=== PATIENT | female | born 1990 | race Caucasian/White ===

== ENCOUNTER 2017-01-19 13:40 | Emergency (ER) | payer BC ==
[2017-01-19] MEDS ORDERED: Ketorolac Tromethamine 30 MG/ML VIAL ONE (17:45)
== END 2017-01-19 18:55 | disposition home or self-care (01) ==
LOC: ERS 13:40
DX: G50.0 Trigeminal neuralgia (principal); G43.909 Migraine, unspecified, not intractable, without status migrainosus; F41.9 Anxiety disorder, unspecified; F32.9 Major depressive disorder, single episode, unspecified
CPT/HCPCS: 96372; J1885

== ENCOUNTER 2019-02-10 10:16 | Emergency (ER) | payer BC, OTHER | END 2019-02-10 13:37 | disposition home or self-care (01) | LOC: ERS 10:16 | DX: J11.1 Influenza due to unidentified influenza virus with other respiratory manifestations (principal); G43.909 Migraine, unspecified, not intractable, without status migrainosus; F41.9 Anxiety disorder, unspecified; F32.9 Major depressive disorder, single episode, unspecified | CPT/HCPCS: 87804; 99283 ==

== ENCOUNTER 2019-10-13 13:04 | Emergency (ER) | payer OTHER ==
[2019-10-13 13:41] LABS: BHCG - Serum Negative (NEGATIVE); Pregs Control Background? CLEAR/WHITE (CLR/WHITE); Pregs Control Bar Appear? YES (CONTROL BAR)
[2019-10-13] MEDS ORDERED: Ketorolac Tromethamine 30 MG/ML VIAL ONE (13:42)
[2019-10-13] MEDS ORDERED: Lorazepam 2 MG/ML VIAL ONE (13:42)
[2019-10-13 13:43] LABS: #Basophils 0.1 thou/uL (0.0-0.2); #Lymphocytes 1.4 thou/uL (1.20-3.40); #Monocytes 1.1 thou/uL (0.11-0.59); #Neutrophils 12.4 thou/uL (1.40-6.50); %Basophils 0.4 % (0.0-1.0); %Eosinophils 0.1 % (0.0-10.0); %Lymphocytes 9.2 % (21.0-51.0); %Monocytes 7.2 % (0.0-10.0); %Neutrophils 83.1 % (42.0-75.0); Hemoglobin 13.6 g/dL (12.0-16.0); Mean Corpuscular HGB CONC 33.6 g/dL (32.0-36.0); Mean Corpuscular Hemoglobin 33.2 pg (27.0-31.0); Mean Corpuscular Volume 98.7 fL (78.0-98.0); Platelet Count 144 thou/uL (130-400); RBC Distribution Width 12.1 % (11.5-14.5); Red Blood Cell (RBC) Count 4.11 mill/uL (4.20-5.40)
[2019-10-13 13:57] LABS: ALT (SGPT) 11 U/L (8-55); AST (SGOT) 10 U/L (5-34); Albumin 3.6 g/dL (3.5-5.0); Alkaline Phosphatase 58 U/L (40-110); Anion Gap 16 mmol/L (10-20); BUN (Urea Nitrogen) 11 mg/dL (7.0-18.7); Bilirubin, Total 1.2 mg/dL (0.2-1.2); CK (CPK) 41 U/L (29-168); Calc. Creatinine Clearance 0 mL/min (70-130); Calcium 8.3 mg/dL (7.8-10.44); Carbon Dioxide 18 mmol/L (22-29); Chloride 107 mmol/L (98-107); Estimated GFR-MDRD 72; Globulin 2.1 g/dL (2.4-3.5); Glucose 100 mg/dL (70-105); Potassium 3.4 mmol/L (3.5-5.1); Protein, Total 5.7 g/dL (6.0-8.3); Sodium 138 mmol/L (136-145)
--- NOTE | 2019-10-13 14:18 | RAD ---
RADIOGRAPH CHEST 1 VIEW: DATE: 10/13/2019 HISTORY: 29-year-old female with chest pain and dyspnea FINDINGS: There are no airspace densities, pulmonary edema, pneumothorax, or cardiomegaly. The lateral costophr enic angles are sharp. IMPRESSION: No acute cardiopulmonary findings.
== END 2019-10-13 15:13 | disposition home or self-care (01) ==
LOC: ERS 13:04
DX: R07.89 Other chest pain (principal); R06.02 Shortness of breath; F41.9 Anxiety disorder, unspecified; F32.9 Major depressive disorder, single episode, unspecified; Z87.442 Personal history of urinary calculi
CPT/HCPCS: 36415; 71045; 80053; 82550; 84703; 85025; 93005; 96374; 96375; J1885; J2060

== ENCOUNTER 2019-10-16 08:33 | Inpatient (IN) | payer OTHER ==
[2019-10-16 10:06] VITALS: BMI 25.9
[2019-10-16] MEDS ORDERED: Ondansetron PF 4 MG/2 ML Vial IVP PRN (10:14)
[2019-10-16] MEDS ORDERED: Acetaminophen 650 MG Suppository PR PRN (10:14)
[2019-10-16] MEDS ORDERED: Acetaminophen 325 MG TAB PO PRN (10:14)
[2019-10-16] MEDS ORDERED: Potassium Chloride 20 MEQ in Premix Bag 1 BAG IVPB SCH (10:45)
[2019-10-16] MEDS: Sodium Chloride 0.9% 1,000 ML IV SCH ×2 (13:30→20:37)
[2019-10-16] MEDS ORDERED: HYDROcodone/Acetaminophen 5/325 mg Tablet PO PRN (14:15)
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
[2019-10-16] MEDS: Morphine 2 MG/ML VIAL SLOW IVP PRN (16:22)
[2019-10-16] MEDS: Ketorolac Tromethamine 30 MG/ML VIAL IVP PRN (17:39)
[2019-10-16] MEDS ORDERED: Potassium Chloride 20 MEQ TAB PO SCH (17:45)
--- NOTE | 2019-10-16 20:23 | CON ---
DATE OF CONSULTATION: 10/16/2019 CONSULTING PHYSICIAN: Dr. Shah. REASON FOR CONSULTATION: Ureteral stone with hydronephrosis. CHIEF COMPLAINT: "I have this pain on my left side." HISTORY OF PRESENT ILLNESS: Tiffanie is a 29-year-old white female who initially presented to the emergency room with intractable nausea and vomiting along with sharp left lower quadrant and groin pain, which was intermittent and rated about a 9/10. She initially went to [place] on 10/11, and was diagnosed with a 2-mm distal left ureteral stone. She was given antinausea medication and pain medication and told that she has a high probability of passing the stone; however, she continued to have more nausea and vomiting, some due to the pain medication and some due to the stone. She stated that she could not tolerate this and came back to the emergency room today. She had another CT scan, which showed a 3-mm stone at the ureterovesical junction, which was likely the same stone, measured slightly differently. She denied any fevers during this time. She has not taken any antibiotics. Her nausea and vomiting are currently under control and her pain is currently a 4/10 with continued pain in her left lower quadrant and left groin. She does have a history of prior nephrolithiasis. ALLERGIES: 1. LATEX. 2. TRAMADOL. 3. ADHESIVES. CURRENT HOME MEDICATIONS: None. PAST MEDICAL HISTORY: 1. Nephrolithiasis. 2. Migraine headaches, treated with Botox every 3 months. PAST SURGICAL HISTORY: 1. Nasal surgery. 2. Knee surgery x3. 3. [place] tooth surgery. FAMILY HISTORY: Noncontributory. SOCIAL HISTORY: The patient currently works at a bakery. She is finishing [employer]. She denies tobacco abuse, illicit drug use, or alcohol abuse. REVIEW OF SYSTEMS: A 12-point review of systems reviewed and negative other than what was commented on the HPI. PHYSICAL EXAMINATION: VITAL SIGNS: Temperature 98.3, pulse 55, respirations 16, blood pressure 106/72, and saturation 98% on room air. GENERAL: No apparent distress, communicative and alert, appears stated age, well nourished, well developed, looks somewhat tired and worn out from her recent episodes of pain and nausea and vomiting. HEENT: Normocephalic and atraumatic. Pupils are symmetric and round. Trachea midline. Moist mucous membranes. CARDIOVASCULAR: Sinus bradycardia. Normal S1 and S2. Symmetric pulses. CHEST: Nonlabored breathing. Symmetric expansion. LUNGS: Clear anteriorly. ABDOMEN: Soft, nontender, and nondistended. Positive bowel sounds. No significant suprapubic tenderness. Mild left lower quadrant tenderness. No obvious organomegaly. GENITOURINARY: Deferred at this time. EXTREMITIES: No clubbing, cyanosis, or edema. SKIN: Warm and dry. No rash or lesions. Good turgor. MUSCULOSKELETAL: No joint deformities or joint erythema noted. Full range of motion. NEUROLOGIC: Cranial nerves 2 through 12 grossly intact. No focal or sensory motor deficits identified. LYMPHATICS: No obvious lymphadenopathy noted. PSYCHIATRIC: Alert and oriented x3. Appropriate mood and affect. LABORATORY EVALUATION: Full set of labs are in the [employer] system, which I have reviewed. Of note, the patient's creatinine is 1.19. White count of 15.3. Urinalysis demonstrates 7 to 10 red cells, rare calcium oxalate crystals, leukocyte esterase negative, nitrite negative, no bacteria seen. test was also negative. IMAGING REVIEW: CT stone protocol demonstrates a 3-mm distal left ureterovesical junction stone with mild hydronephrosis and no other stones noted. There is also mild edema of the left kidney. ASSESSMENT AND PLAN: A 29-year-old white female with a 2nd visit to the emergency room secondary to the same distal left ureteral stone. There is still an 85% chance that she could pass the stone on her own if she can control the nausea and vomiting; however, the patient states that she is tired of dealing with the symptoms and would rather have the stone removed. I think this is very reasonable given that she has had intractable nausea and vomiting and has already failed initial trial of medical expulsive therapy at home. I discussed ureteroscopy with her, which would be the ideal treatment in the setting with a distal stone. Procedure was explained in detail as well as the postoperative course and need for ureteral stenting afterwards. Risks and benefits of surgery were discussed, risks of which include but are not limited to bleeding, infection, damage to the ureter, ureteral stricture, inability to remove the stone, ureteral perforation, damage to the kidney or bladder, urethral injury and need for further procedures. She understands these risks and states that she is willing to proceed forward with ureteroscopy tomorrow. We will get this set up for tomorrow. I also explained the absolute need to make sure she has followup to have her stent removed to avoid serious complications from retained indwelling stent. She states she understands and will keep her followup appointments. PLAN: 1. Regular diet for now, n.p.o. after midnight. 2. The patient may remain on antibiotics as it stands currently in preparation for her surgery tomorrow due to elevated white count. 3. No evidence for urinary tract infection, but continue antibiotics for now. 4. SCDs bilaterally on-call to the OR. 5. To operating room tomorrow for cystoscopy, left ureteroscopy, laser lithotripsy, basket extraction of stone, and placement of ureteral stent on the left. 6. The patient can probably be discharged home once her stone is removed and she has a stent in, I will handle her followup on an outpatient basis for stent removal and then stone metabolic workup for stone prevention in the future. Job ID: [id number]
[2019-10-16] MEDS: Famotidine/PF 20 mg/2ml Vial SLOW IVP SCH (20:37)
[2019-10-17] MEDS: Sodium Chloride 0.9% 1,000 ML IV SCH ×2 (03:52→21:38)
[2019-10-17 06:01] LABS: #Basophils 0.1 thou/uL (0.0-0.2); #Eosinphils 0.1 thou/uL (0.0-0.7); #Lymphocytes 2.4 thou/uL (1.20-3.40); #Monocytes 0.5 thou/uL (0.11-0.59); #Neutrophils 4.3 thou/uL (1.40-6.50); %Eosinophils 1.4 % (0.0-10.0); %Lymphocytes 32.1 % (21.0-51.0); %Monocytes 7.3 % (0.0-10.0); %Neutrophils 58.3 % (42.0-75.0); Hemoglobin 12.1 g/dL (12.0-16.0); Mean Corpuscular Hemoglobin 32.3 pg (27.0-31.0); Mean Platelet Volume 12.2 fL (7.4-10.4); Platelet Count 106 thou/uL (130-400); RBC Distribution Width 12.3 % (11.5-14.5); Red Blood Cell (RBC) Count 3.75 mill/uL (4.20-5.40); White Blood Cell (WBC) Count 7.4 thou/uL (4.8-10.8)
[2019-10-17 06:21] LABS: Anion Gap 10 mmol/L (10-20); BUN (Urea Nitrogen) 7 mg/dL (7.0-18.7); Calc. Creatinine Clearance 127 mL/min (70-130); Calcium 7.8 mg/dL (7.8-10.44); Carbon Dioxide 23 mmol/L (22-29); Chloride 108 mmol/L (98-107); Estimated GFR-MDRD 84; Glucose 80 mg/dL (70-105); Potassium 3.8 mmol/L (3.5-5.1); Sodium 137 mmol/L (136-145)
[2019-10-17] MEDS ORDERED: Fentanyl 100 MCG/2 ML VIAL ONE ×2 (07:10→09:27)
[2019-10-17] MEDS ORDERED: Iothalamate Meglumine 60% 50 ML VIAL FS ONE (07:31)
[2019-10-17] MEDS ORDERED: B & O ONE (07:31)
[2019-10-17] MEDS ORDERED: Ondansetron ODT 4 MG TAB ONE (07:46)
[2019-10-17] MEDS ORDERED: Midazolam HCl 2 mg/2 ml Vial ONE (07:57)
[2019-10-17] MEDS ORDERED: cefTRIAXone\\ROCEPHIN 1 GM VIAL ONE (07:58)
[2019-10-17] MEDS ORDERED: Sodium Chloride 0.9% 100 ML ONE (07:59)
[2019-10-17] MEDS ORDERED: cefTRIAXone\\ROCEPHIN 1 GM in Sodium Chloride 0.9% 100 ML IVPB SCH (08:00)
[2019-10-17] MEDS ORDERED: cefTRIAXone Sodium 1,000 MG in Syringe 0 ML IVPB SCH (08:00)
[2019-10-17] MEDS ORDERED: SUGAMMADEX SODIUM 200 MG/2 ML VIAL ONE (08:49)
--- NOTE | 2019-10-17 09:36 | OP ---
DATE OF PROCEDURE: 10/17/2019 SERVICES: Urology. PREOPERATIVE DIAGNOSIS: Left ureteral stone. POSTOPERATIVE DIAGNOSIS: Left ureteral stone. PROCEDURE PERFORMED: Left ureteroscopy, laser lithotripsy, basket extraction of stone and placement of a 6 x 24 double-J stent. INDICATION FOR PROCEDURE: Ms. Moreno is a 29-year-old white female who initially presented to the emergency room for a 2nd time with left flank pain. A CT demonstrated a 3-mm distal stone. She had intractable vomiting and had failed medical expulsive therapy. She elected to instead have her stone removed. Risks and benefits were discussed, and she has agreed to proceed forward. DESCRIPTION OF PROCEDURE: After identification of armband and verification of consent, the patient was brought back to the operating room where she underwent general anesthesia with endotracheal intubation. She was then placed in dorsal lithotomy position and prepped and draped in usual sterile fashion. After appropriate time-out, a lubricated 22-Frisian rigid cystoscope was introduced per urethra into the bladder. Attention was turned to left ureteral orifice. The bladder was grossly unremarkable without lesions or stones noted. The left ureter was cannulated with a 0.035 Sensor wire up to the level of renal pelvis. The cystoscope was then removed leaving the Sensor wire in place as a safety wire. A semi-rigid ureteroscope was then brought in alongside the Sensor wire and cannulated through the distal ureter until the stone was noted in the distal ureter. Using a 200 micron laser fiber, the stone was fragmented in half, and then a 1.9-Frisian ZeroTip Nitinol basket used to remove the fragments. Upon completion, the ureter was completely clean, free of stone debris. Due to some inflammation and a very mild thermal injury from the laser, I did elect to leave a stent afterwards. The ureteroscope was withdrawn, and the 6 x 24 double-J stent was positioned fluoroscopically over the wire into the proximal end into the kidney and a distal into the bladder. The wire was removed, leaving a good curl in the kidney and bladder as seen fluoroscopically. The cystoscope was then reintroduced back into the bladder, and an additional fragment of the stone was removed using flexible graspers. The distal end of the stent was confirmed in the bladder and seen to be curled there. The bladder was emptied, and the cystoscope removed. B and O suppositories were placed in the patient's rectum. She was then taken out of position, awakened, taken to PACU for recovery in stable condition. COMPLICATIONS: None. ESTIMATED BLOOD LOSS: Minimal. RETAINED TUBES AND DRAINS: 6 x 24 double-J stent on the left. SPECIMENS: Stone for stone analysis. DISPOSITION: The patient will be discharged home and will follow up with me in approximately 1 week for cystoscopy and stent removal. Job ID: [id number]
[2019-10-17] MEDS ORDERED: Labetalol HCl 100 MG/20 ML VIAL ONE (09:43)
[2019-10-17] MEDS ORDERED: Ondansetron HCl/PF 4 MG/2 ML Vial IVP PRN (09:52)
[2019-10-17] MEDS ORDERED: Labetalol HCl 100 MG/20 ML VIAL SLOW IVP SCH (09:56)
[2019-10-17] MEDS: Famotidine/PF 20 mg/2ml Vial SLOW IVP SCH ×2 (10:02→20:32)
[2019-10-17] MEDS ORDERED: Glycopyrrolate 0.2 MG/ML 5 ML SYRINGE ONE (10:07)
[2019-10-17] MEDS ORDERED: Lidocaine 1% PF 5 ML VIAL ONE (10:07)
[2019-10-17] MEDS ORDERED: PROPOFOL 200 MG/20 ML VIAL ONE (10:07)
[2019-10-17] MEDS ORDERED: Dexamethasone 20 MG/5 ML VIAL ONE (10:07)
[2019-10-17] MEDS ORDERED: Rocuronium Bromide 10 MG/ML (10ML VIAL) ONE (10:07)
[2019-10-17] MEDS ORDERED: Ondansetron PF 4 MG/2 ML Vial ONE (10:07)
[2019-10-17] MEDS ORDERED: hydrALAZINE 20 MG/ML VIAL SLOW IVP SCH (12:00)
[2019-10-17 12:32] LABS: SARS-CoV-2 MS2 Positive; SARS-CoV-2 N Gene Negative; SARS-CoV-2 S Gene Negative; SARS-CoV-2 by NAA Not Detected (NotDetected); SARS-CoV-2 orf1ab Negative
--- NOTE | 2019-10-17 13:30 | PDOC.HOSPP ---
- Subjective Encounter Date: 10/17/19 Encounter Time: 10:40 Subjective: Patient had a urethral stent placement just returned from the OR. Lately the nursing called me for high blood pressure and chest discomfort. - Objective Vital Signs & Weight: Vital Signs (12 hours) Temp Pulse Resp BP BP Pulse Ox 10/17/19 13:08 98.2 F 80 14 118/69 99 10/17/19 12:18 61 172/104 H 10/17/19 12:15 54 L 10/17/19 11:27 98.2 F 54 L 16 155/91 H 98 10/17/19 10:00 98.6 F 60 16 160/95 H 99 10/17/19 07:12 98.5 F 61 16 130/81 97 Weight Admit Weight 171 lb 0.5 oz Weight 171 lb 0.5 oz I&O: 10/16/19 10/17/19 10/18/19 06:59 06:59 06:59 Intake Total 1220 Output Total 300 Balance 920 Result Diagrams: 10/17/19 05:32 10/17/19 05:32 Hospitalist ROS - Medication Medications: Active Medications Generic Name Dose Route Start Last Admin Trade Name Freq PRN Reason Stop Dose Admin Famotidine 20 mg 10/16/19 21:00 10/17/19 10:02 Pepcid SLOW IVP Not Given Q12HR IVY Hydralazine HCl 10 mg 10/17/19 12:00 10/17/19 12:18 Apresoline SLOW IVP 10/17/19 16:00 10 mg NOW IVY Administration Sodium Chloride 1,000 mls @ 100 mls/hr 10/16/19 10:30 10/17/19 03:52 Normal Saline 0.9% IV Not Given .Q10H IVY Ceftriaxone Sodium 1 gm/ 100 mls @ 200 mls/hr 10/17/19 08:00 10/17/19 08:06 Sodium Chloride IVPB 100 mls Q24HR IVY Administration Ketorolac Tromethamine 30 mg 10/16/19 14:47 10/16/19 17:39 Toradol IVP 10/21/19 14:48 30 mg Q6H PRN Administration Pain Morphine Sulfate 2 mg 10/16/19 14:46 10/16/19 16:22 Morphine SLOW IVP 2 mg Q4H PRN Administration Severe Pain (7-10) Ondansetron HCl 4 mg 10/16/19 10:14 10/16/19 15:10 Zofran IVP 4 mg Q6H PRN Administration Nausea/Vomiting Sodium Chloride 10 ml 10/16/19 21:00 10/17/19 10:01 Flush - Normal Saline IVF 10 ml Q12HR IVY Administration - Exam General Appearance: NAD, awake alert Eye: PERRL ENT: normocephalic atraumatic Neck: supple Heart: RRR Respiratory: CTAB, normal chest expansion Gastrointestinal: soft, normal bowel sounds Neurological: no focal deficits Psychiatric: A&O x 3 Hosp A/P - Plan Left ureteral stone Left hydronephrosis Status post stone extraction cystoscopy and laser lithotripsy and basket extraction of the stone. Lately the nursing called me for high blood pressure and chest discomfort. Accelerated hypertension secondary to pain Likely noncardiac chest discomfort secondary to acute stress Unlikely cardiac ischemia in this young patient. --Will follow clinically. PRN medication Follow next few hours. If she is stable we can discharge her; otherwise observe overnight postop.
[2019-10-17] MEDS: Nitroglycerin 0.4 MG TAB (25 Tab Bottle) SL SCH ×2 (14:10→14:44)
[2019-10-17] MEDS: Ketorolac Tromethamine 30 MG/ML VIAL IVP PRN ×2 (14:58→21:34)
[2019-10-17] MEDS ORDERED: hydrALAZINE 20 MG/ML VIAL SLOW IVP PRN (16:29)
[2019-10-18] MEDS: Ketorolac Tromethamine 30 MG/ML VIAL IVP PRN (02:39)
[2019-10-18] MEDS: Morphine 2 MG/ML VIAL SLOW IVP PRN (05:12)
[2019-10-18] MEDS: Sodium Chloride 0.9% 1,000 ML IV SCH (07:10)
[2019-10-18] MEDS: Famotidine/PF 20 mg/2ml Vial SLOW IVP SCH (08:11)
[2019-10-18 08:14] VITALS: TEMP 98.4
[2019-10-18 11:22] VITALS: BP 133/81
--- NOTE | 2019-10-18 14:35 | DIS ---
DATE OF ADMISSION: 10/16/2019 DATE OF DISCHARGE: 10/18/2019 DISCHARGE DIAGNOSES: 1. Left ureteral stone and associated left hydronephrosis. 2. Status post stone extraction with cystoscopy and laser lithotripsy. DISCHARGE MEDICATION: Jefferson one tablet q.4 p.r.n. PHYSICAL EXAMINATION: On the day of discharge; VITAL SIGNS: Temperature 98.4, pulse 61, blood pressure 133/81, saturating 97% on room air. GENERAL: The patient still has some bleed while voiding and mild discomfort with ambulation. Otherwise, she is hemodynamically stable. Pain is almost controlled with Jefferson. She is stable to be discharged home today. No chest pain. CARDIOVASCULAR: Regular rate and rhythm without murmurs. LUNGS: Clear. ABDOMEN: No abnormality. Abdominal exam is benign. HOSPITAL COURSE: This is a 29-year-old female, admitted with nephrolithiasis, has undergone cystoscopy and stone extraction. She received empiric dose of ceftriaxone. After stone extraction, she stayed overnight because of ongoing pain as well as her blood pressure was quite high. The next day morning, she has improved clinically, her blood pressure in the range of 125/75. She does have ongoing hematuria and notified the urologist and she is agreeable to be discharged home today. DISCHARGE INSTRUCTIONS: Activity as tolerated. Regular diet. Follow up with Dr. Carlo Brambila in 7 days. Discharge time took over 35 minutes. Job ID: [id number] [id number]
== END 2019-10-18 12:47 | disposition home or self-care (01) | DRG 660 ==
LOC: T4-A 09:48
PROVIDERS: ADMIT Internal Medicine; ATTEND Internal Medicine
PROC: 0TC78ZZ Extirpation of Matter from Left Ureter, Via Natural or Artificial Opening Endoscopic (ICD-10-PCS; principal; 2019-10-17)
PROC: 0T778DZ Dilation of Left Ureter with Intraluminal Device, Via Natural or Artificial Opening Endoscopic (ICD-10-PCS; 2019-10-17)
DX: N13.2 Hydronephrosis with renal and ureteral calculous obstruction (principal); E87.2 Acidosis; E87.6 Hypokalemia; N17.9 Acute kidney failure, unspecified; E86.0 Dehydration; G43.909 Migraine, unspecified, not intractable, without status migrainosus; I10 Essential (primary) hypertension; Z20.828 Contact with and (suspected) exposure to other viral communicable diseases; D72.829 Elevated white blood cell count, unspecified; Z91.040 Latex allergy status; Z88.8 Allergy status to other drugs, medicaments and biological substances; Z91.048 Other nonmedicinal substance allergy status
CPT/HCPCS: 36415; 36600; 71045; 74420; 76000; 80048; 80053; 82365; 82550; 84703; 85025; 87086; 87635; 88300; 93005; 93010; 96374; 96375; J0360; J0696; J1100; J1885; J2060; J2250; J2270; J2405; J2704; J3010; J3480; J3490; Q0162; S0028; U0003

== ENCOUNTER 2021-06-16 14:01 | Outpatient (CLI) | payer BC | END 2021-06-16 14:02 | disposition home or self-care (01) | LOC: BICCT 14:01 | PROVIDERS: ATTEND Family Medicine | DX: R10.84 Generalized abdominal pain (principal) | CPT/HCPCS: 74176 ==

== ENCOUNTER 2022-04-17 20:03 | Emergency (ER) | payer BC, SELFPAY ==
[2022-04-17] MEDS ORDERED: Metoclopramide HCl 10 MG/2 ML VIAL ONE (22:12)
[2022-04-18] LABS: #Basophils 0.1 thou/uL (0.0-0.2); #Eosinphils 0.2 thou/uL (0.0-0.7); #Lymphocytes 2.2 thou/uL (1.20-3.40); #Monocytes 0.7 thou/uL (0.11-0.59); #Neutrophils 3.3 thou/uL (1.40-6.50); %Basophils 1.2 % (0.0-1.0); %Eosinophils 2.6 % (0.0-10.0); %Lymphocytes 33.6 % (21.0-51.0); %Neutrophils 51.7 % (42.0-75.0); Hemoglobin 12.8 g/dL (12.0-16.0); Mean Corpuscular HGB CONC 32.8 g/dL (32.0-36.0); Mean Corpuscular Hemoglobin 33.5 pg (27.0-31.0); Mean Platelet Volume 10.7 fL (7.4-10.4); Platelet Count 133 10x3/uL (130-400); RBC Distribution Width 11.3 % (11.5-14.5); Red Blood Cell (RBC) Count 3.83 mill/uL (4.20-5.40); White Blood Cell (WBC) Count 6.5 10x3/uL (4.8-10.8)
[2022-04-18 00:11] LABS: INR-International Normal Ratio 1.1; PTT 28.8 sec (22.9-36.1); Prothrombin Time 14.1 sec (12.0-14.7)
[2022-04-18] MEDS ORDERED: Ketorolac Tromethamine 30 MG/ML VIAL ONE (00:14)
[2022-04-18 00:21] LABS: ALT (SGPT) 7 U/L (8-55); AST (SGOT) 11 U/L (5-34); Albumin 3.8 g/dL (3.5-5.0); Alkaline Phosphatase 74 U/L (40-110); Anion Gap 10 mmol/L (10-20); BUN (Urea Nitrogen) 5 mg/dL (7.0-18.7); Bilirubin, Total 0.4 mg/dL (0.2-1.2); Calc. Creatinine Clearance 0 mL/min (70-130); Calcium 8.7 mg/dL (7.8-10.44); Carbon Dioxide 26 mmol/L (22-29); Chloride 109 mmol/L (98-107); Estimated GFR 108; Globulin 2.5 g/dL (2.4-3.5); Glucose 89 mg/dL (70-105); Protein, Total 6.3 g/dL (6.0-8.3); Sodium 141 mmol/L (136-145)
== END 2022-04-18 00:30 | disposition home or self-care (01) ==
LOC: ERS 20:03
DX: R51.9 Headache, unspecified (principal)
CPT/HCPCS: 36415; 80053; 85025; 85610; 85730; 96374; 96375; J1885; J2765